=== PATIENT | male | born 1995 | race Caucasian/White ===

== ENCOUNTER 2017-08-30 11:52 | Emergency (ER) | payer OTHER, BC ==
--- NOTE | 2017-08-30 12:12 | EDM.PDOC ---
ED HPI GENERAL MEDICAL PROBLEM - General Chief Complaint: Lower Extremity Injury/Pain Stated Complaint: [facility] Time Seen by Provider: 08/30/17 11:57 Source of Information: Reports: Patient, Family History Limitations: Reports: No Limitations - History of Present Illness INITIAL COMMENTS - FREE TEXT/NARRATIVE: The patient was playing basketball and he hit the rim and the basketball came back and hit him in the right hand. His wrist hurts after that. He has no other injuries. He is right handed. Onset: Sudden Duration: Minutes: Location: Reports: Upper Extremity, Right (Wrist) Quality: Reports: Sharp Severity: Moderate Improves with: Reports: Immobilization Worsens with: Reports: Movement Context: Reports: Exercise (Playing basketball) Associated Symptoms: Reports: No Other Symptoms Left Knee Pain Score (Numeric/FACES): 6 - Related Data Allergies Allergy/AdvReac Type Severity Reaction Status Date / Time amoxicillin Allergy Swelling Verified 08/30/17 11:57 shellfish derived AdvReac Nausea and Verified 08/30/17 11:57 Vomiting Home Meds: Home Meds . [No Known Home Meds] 08/30/17 [History] Past Medical History Musculoskeletal History: Reports: Other (See Below) Other Musculoskeletal History: knee dislocation Social & Family History - Tobacco Use Smoking Status *Q: Never Smoker Second Hand Smoke Exposure: No - Recreational Drug Use Recreational Drug Use: No Review of Systems - Review of Systems Review Of Systems: See Below Constitutional: Reports: No Symptoms Eyes: Reports: No Symptoms Ears: Reports: No Symptoms Nose: Reports: No Symptoms Mouth/Throat: Reports: No Symptoms Respiratory: Reports: No Symptoms Cardiovascular: Reports: No Symptoms GI/Abdominal: Reports: No Symptoms Musculoskeletal: Reports: Other (Right wrist pain) ED EXAM, GENERAL - Physical Exam Exam: See Below Exam Limited By: No Limitations General Appearance: Alert, No Apparent Distress Ears: Normal External Exam Nose: Normal Inspection Head: Atraumatic, Normocephalic Neck: Normal Inspection Respiratory/Chest: No Respiratory Distress Extremities: Other (Pain upon palpation to the right wrist. No edema noted) Course - Vital Signs Last Recorded V/S: Last Vital Signs Temp 98.6 F 08/30/17 11:54 Pulse 65 08/30/17 11:54 Resp 16 08/30/17 11:54 BP 141/89 H 08/30/17 11:54 Pulse Ox 99 08/30/17 11:54 - Orders/Labs/Meds Orders: Active Orders 24 hr Category Date Time Status Knee 1V or 2V Lt [CR] Stat Exams 08/30/17 12:06 Ordered - Re-Assessments/Exams Free Text/Narrative Re-Assessment/Exam: 08/30/17 12:10 His x-ray looks good. He has a sprain of his wrist. I will have him wear an gislea wrap. Departure - Departure Time of Disposition: 12:10 Disposition: Home, Self-Care 01 Condition: Good Clinical Impression: Sprain of right wrist Qualifiers: Encounter type: initial encounter Qualified Code(s): S63.501A - Unspecified sprain of right wrist, initial encounter - Discharge Information Additional Instructions: Ice your wrist for 15 minutes 3 times per day for 2 days. Wear the gisela wrap for comfort. Take motrin or tylenol for pain. Follow up with your doctor in 2 weeks if you are not better. - My Orders Last 24 Hours: My Active Orders 08/30/17 12:06 Knee 1V or 2V Lt [CR] Stat - Assessment/Plan Last 24 Hours: My Active Orders 08/30/17 12:06 Knee 1V or 2V Lt [CR] Stat
[2017-08-30] MEDS ORDERED: HYDROmorphone 0.5 MG/0.5 ML SYRINGE IVPUSH ONE (12:20)
--- NOTE | 2017-08-30 12:38 | PCM.PREANE ---
Preanesthetic Assessment - Anesthesia/Transfusion/Family Hx Anesthesia History: Prior Anesthesia Without Reaction Family History of Anesthesia Reaction: No Transfusion History: No Prior Transfusion(s) Intubation History: Unknown - Review of Systems General: No Symptoms Pulmonary: No Symptoms Cardiovascular: No Symptoms Gastrointestinal: No Symptoms Neurological: No Symptoms Other: Reports: None (ETOH noted occasionally) - Physical Assessment NPO Status Date: 08/30/17 NPO Status Time: 07:30 Pulse: 65 O2 Sat by Pulse Oximetry: 99 Respiratory Rate: 16 Blood Pressure: 141/89 Temperature: 37 C Vital Signs: Last Vital Signs Temp 37.0 C 08/30/17 11:54 Pulse 65 08/30/17 11:54 Resp 16 08/30/17 11:54 BP 141/89 H 08/30/17 11:54 Pulse Ox 99 08/30/17 11:54 Height: 1.83 m Weight: 92.986 kg ASA Class: 1E Mental Status: Alert & Oriented x3 Airway Class: Mallampati = 2 Dentition: Reports: Normal Dentition (permanent bottom retainer noted.), Caries Thyro-Mental Finger Breadths: 3 Mouth Opening Finger Breadths: 3 ROM/Head Extension: Full Lungs: Clear to Auscultation, Normal Respiratory Effort Cardiovascular: Regular Rate, Regular Rhythm, No Murmurs - Allergies Allergies/Adverse Reactions: Allergies Allergy/AdvReac Type Severity Reaction Status Date / Time amoxicillin Allergy Swelling Verified 08/30/17 11:57 shellfish derived AdvReac Nausea and Verified 08/30/17 11:57 Vomiting - Anesthesia Plan Pre-Op Medication Ordered: None - Acknowledgements Anesthesia Type Planned: MAC Pt an Appropriate Candidate for the Planned Anesthesia: Yes Alternatives and Risks of Anesthesia Discussed w Pt/Guardian: Yes Pt/Guardian Understands and Agrees with Anesthesia Plan: Yes PreAnesthesia Questionnaire Musculoskeletal History: Reports: Other (See Below) Other Musculoskeletal History: knee dislocation - SUBSTANCE USE Smoking Status *Q: Never Smoker Second Hand Smoke Exposure: No Recreational Drug Use History: No - HOME MEDS Home Medications: Home Meds . [No Known Home Meds] 08/30/17 [History] - CURRENT (IN HOUSE) MEDS Current Meds: Current Medications Discontinued Medications Hydromorphone HCl (Dilaudid) 0.5 mg IVPUSH ONETIME ONE Stop: 08/30/17 12:21 Last Admin: 08/30/17 12:25 Dose: 0.5 mg
[2017-08-30] MEDS ORDERED: Lidocaine 1% 6 ML ONE (12:42)
[2017-08-30] MEDS ORDERED: Propofol 200 MG/20 ML SDV ONE (12:42)
[2017-08-30 13:21] VITALS: BP 130/76
--- NOTE | 2017-08-30 13:21 | PCM48HPAN ---
Post Anesthesia Note - EVALUATION WITHIN 48HRS OF ANESTHETIC Vital Signs in Normal Range: Yes Patient Participated in Evaluation: Yes Respiratory Function Stable: Yes Airway Patent: Yes Cardiovascular Function Stable: Yes Hydration Status Stable: Yes Pain Control Satisfactory: Yes Nausea and Vomiting Control Satisfactory: Yes Mental Status Recovered: Yes Pulse Rate: 88 SaO2: 100 Resp Rate: 22 Temperature: 37 C Blood Pressure: 130/76
[2017-08-30] MEDS ORDERED: Ketorolac 30 MG/ML SDV IVPUSH ONE (14:55)
--- NOTE | 2017-08-31 08:08 | CR ---
Left knee: Single AP view of the left knee was obtained. Patellar dislocation appears better aligned but still remains laterally subluxed. No additional abnormality is seen. Impression: 1. Persistent lateral subluxation of patella. Diagnostic code #3
--- NOTE | 2017-08-31 08:08 | CR ---
Left knee: Two views of the left knee were obtained. Dislocated patella is seen laterally. No discrete fracture identified on this two-view study. Impression: 1. Dislocated patella. Diagnostic code #3
--- NOTE | 2017-08-31 08:18 | CT ---
CT left knee Technique: Multiple axial sections were obtained through the left knee. Reconstructed coronal and sagittal images were obtained. Comparison: Previous left knee radiographs of 11/23/14 and MRI of 12/09/14. Findings: Patella is subluxed laterally. Fluid seen within the joint which has Hounsfield unit measurements of blood compatible with bloody effusion. Small avulsion fracture is identified off the medial edge of the patella compatible with avulsion at the attachment of the medial retinaculum. Slight osteophyte is noted off the lateral femoral condyle. No acute fracture is identified. There is a small well-corticated bony density noted off the anterior joint likely relating to old injury which may represent a small loose body measuring about 1.6 cm in greatest dimension. Exact donor site of this old injury is uncertain. Impression: 1. Acute avulsion fracture at the attachment of the medial retinaculum to the medial patella. 2. Subluxation of the patella laterally which appears to be caused by mostly a large bloody effusion. 3. Other incidental findings. Diagnostic code #3 MTDD
== END 2017-08-30 15:20 | disposition home or self-care (01) ==
LOC: JD.ED 11:52
DX: S82.002A Unspecified fracture of left patella, initial encounter for closed fracture (principal); S83.005A Unspecified dislocation of left patella, initial encounter; S63.501A Unspecified sprain of right wrist, initial encounter; Z88.1 Allergy status to other antibiotic agents; Z91.013 Allergy to seafood; X50.9XXA Other and unspecified overexertion or strenuous movements or postures, initial encounter
CPT/HCPCS: 27562; 73560; 73700; 96374; 96375; 99285; J1170; J1885; J2001; 01390; 27560; 99282-25; J2704

== ENCOUNTER 2017-10-11 08:51 | Day surgery (SDC) | payer OTHER, BC ==
[~2017-10-11 08:51] MED LIST: Lidocaine 1%/Sod Bicarbonate in NS 8.4% 1 ML Syringe IDERM PRN; Sodium Chloride 0.9% 10 ML Syringe FLUSH PRN
[2017-10-11] MEDS: Lactated Ringers 1,000 ML IV SCH ×2 (09:20→16:06)
--- NOTE | 2017-10-11 09:41 | PCM.PREANE ---
Preanesthetic Assessment - Anesthesia/Transfusion/Family Hx Anesthesia History: Prior Anesthesia Without Reaction Family History of Anesthesia Reaction: No Transfusion History: No Prior Transfusion(s) Intubation History: Unknown - Review of Systems General: No Symptoms Pulmonary: No Symptoms Cardiovascular: No Symptoms Gastrointestinal: No Symptoms Neurological: No Symptoms Other: Reports: None - Physical Assessment NPO Status Date: 10/10/17 NPO Status Time: 00:00 Pulse: 79 O2 Sat by Pulse Oximetry: 97 Respiratory Rate: 18 Blood Pressure: 118/62 Temperature: 36.8 C Height: 1.85 m Weight: 89.086 kg ASA Class: 1 Mental Status: Alert & Oriented x3 Dentition: Reports: Normal Dentition Thyro-Mental Finger Breadths: 3 Mouth Opening Finger Breadths: 2 ROM/Head Extension: Full Lungs: Clear to Auscultation, Normal Respiratory Effort Cardiovascular: Regular Rate, Regular Rhythm, No Murmurs - Lab Values: Laboratory Last Values WBC 8.60 K/mm3 (4.23-9.07) 10/05/17 14:22 RBC 5.73 M/mm3 (4.63-6.08) 10/05/17 14:22 Hgb 16.3 gm/L (13.7-17.5) 10/05/17 14:22 Hct 47.8 % (40.1-51.0) 10/05/17 14:22 MCV 83.4 fl (79.0-92.2) 10/05/17 14:22 MCH 28.4 pg (25.7-32.2) 10/05/17 14:22 MCHC 34.1 g/dl (32.2-35.5) 10/05/17 14:22 RDW Std Deviation 38.8 fL (35.1-43.9) 10/05/17 14:22 Plt Count 273 K/mm3 (163-337) 10/05/17 14:22 MPV 10.1 fl (9.4-12.3) 10/05/17 14:22 Neut % (Auto) 59.8 % (34.0-67.9) 10/05/17 14:22 Lymph % (Auto) 25.0 % (21.8-53.1) 10/05/17 14:22 Hernando % (Auto) 11.3 % (5.3-12.2) 10/05/17 14:22 Eos % (Auto) 3.1 (0.8-7.0) 10/05/17 14:22 Baso % (Auto) 0.5 % (0.1-1.2) 10/05/17 14:22 Neut # (Auto) 5.14 K/mm3 (1.78-5.38) 10/05/17 14:22 Lymph # (Auto) 2.15 K/mm3 (1.32-3.57) 10/05/17 14:22 Hernando # (Auto) 0.97 K/mm3 (0.30-0.82) H 10/05/17 14:22 Eos # (Auto) 0.27 K/mm3 (0.04-0.54) 10/05/17 14:22 Baso # (Auto) 0.04 K/mm3 (0.01-0.08) 10/05/17 14:22 Sodium 140 mEq/L (136-145) 10/05/17 14:22 Potassium 3.8 mEq/L (3.5-5.1) 10/05/17 14:22 Chloride 103 mEq/L (98-107) 10/05/17 14:22 Carbon Dioxide 27 mEq/L (21-32) 10/05/17 14:22 Anion Gap 13.8 (5-15) 10/05/17 14:22 BUN 16 mg/dL (7-18) 10/05/17 14:22 Creatinine 0.7 mg/dL (0.7-1.3) 10/05/17 14:22 Est Cr Clr Drug Dosing TNP 10/05/17 14:22 Estimated GFR (MDRD) > 60 mL/min (>60) 10/05/17 14:22 BUN/Creatinine Ratio 22.9 (14-18) H 10/05/17 14:22 Glucose 92 mg/dL (74-106) 10/05/17 14:22 Calcium 9.5 mg/dL (8.5-10.1) 10/05/17 14:22 MRSA (PCR) Negative 10/05/17 14:20 - Allergies Allergies/Adverse Reactions: Allergies Allergy/AdvReac Type Severity Reaction Status Date / Time Penicillins Allergy Hives Verified 10/10/17 16:18 shellfish derived AdvReac Nausea and Verified 10/10/17 16:18 Vomiting - Blood Blood Available: No Product(s) Available: None - Anesthesia Plan Pre-Op Medication Ordered: None - Acknowledgements Anesthesia Type Planned: General Anesthesia Pt an Appropriate Candidate for the Planned Anesthesia: Yes Alternatives and Risks of Anesthesia Discussed w Pt/Guardian: Yes Pt/Guardian Understands and Agrees with Anesthesia Plan: Yes PreAnesthesia Questionnaire HEENT History: Reports: None Cardiovascular History: Reports: None Respiratory History: Reports: None Gastrointestinal History: Reports: None Genitourinary History: Reports: None SOAP WORKER History: Reports: None Musculoskeletal History: Reports: None Other Musculoskeletal History: knee dislocation Neurological History: Reports: None Psychiatric History: Reports: None Endocrine/Metabolic History: Reports: None Hematologic History: Reports: None Immunologic History: Reports: None Oncologic (Cancer) History: Reports: None - Past Surgical History Head Surgeries/Procedures: Reports: None HEENT Surgical History: Reports: Oral Surgery Cardiovascular Surgical History: Reports: None Respiratory Surgical History: Reports: None GI Surgical History: Reports: None Female Surgical History: Reports: None Male Surgical History: Reports: None Neurological Surgical History: Reports: None Musculoskeletal Surgical History: Reports: None Oncologic Surgical History: Reports: None Dermatological Surgical History: Reports: Other (See Below) - SUBSTANCE USE Smoking Status *Q: Never Smoker Tobacco Use Within Last Twelve Months: No Second Hand Smoke Exposure: No Days Per Week of Alcohol Use: 1 Number of Drinks Per Day: 1 Total Drinks Per Week: 1 Recreational Drug Use History: No - HOME MEDS Home Medications: Home Meds Acetaminophen/HYDROcodone [[place] 325-5 MG] 1 - 2 tab PO Q6H PRN #40 tablet 10/11 [Rx] Aspirin 325 mg PO BID #84 tab 10/11/17 [Rx] Cyclobenzaprine [Flexeril] 10 mg PO Q8H PRN #40 tab 10/11/17 [Rx] - CURRENT (IN HOUSE) MEDS Current Meds: Current Medications Epinephrine HCl (Adrenalin) 3 mg IV ONETIME ONE Stop: 10/11/17 10:01 Lactated Ringer's (Ringers, Lactated) 1,000 mls @ 125 mls/hr IV ASDIRECTED BETTY Stop: 10/11/17 23:00 Lidocaine/Sodium Bicarbonate (Buffered Lidocaine 1% In Ns 8.4%) 0.25 ml IDERM ONETIME PRN PRN Reason: Prior to IV Start Stop: 10/11/17 18:00 Sodium Chloride (Saline Flush) 10 ml FLUSH ASDIRECTED PRN PRN Reason: Keep Vein Open Stop: 10/11/17 18:00
[2017-10-11] MEDS ORDERED: Ondansetron 4 MG/2 ML SDV ONE (09:48)
[2017-10-11] MEDS ORDERED: Propofol 200 MG/20 ML SDV ONE (09:49)
[2017-10-11] MEDS ORDERED: Lidocaine 1% 4 ML ONE (09:49)
[2017-10-11] MEDS ORDERED: Midazolam 1 MG/ML 2 ML SDV ONE (09:49)
[2017-10-11] MEDS ORDERED: fentaNYL 250 MCG/5 ML SDV ONE ×2 (09:49→12:00)
[2017-10-11] MEDS ORDERED: Bupivacaine 0.25% 30 ML SDV ONE (09:53)
[2017-10-11] MEDS ORDERED: EPINEPHrine 1 MG/ML 30 ML MDV IV ONE (10:00)
[2017-10-11] MEDS ORDERED: Ketorolac 30 MG/ML SDV ONE (11:27)
[2017-10-11] MEDS ORDERED: Lactated Ringers 1,000 ML ONE (11:29)
[2017-10-11] MEDS ORDERED: ceFAZolin 1 GM Vial ONE (11:33)
[2017-10-11] MEDS ORDERED: HYDROmorphone 0.5 MG/0.5 ML Syringe ONE ×4 (11:36→12:07)
--- NOTE | 2017-10-11 13:19 | PCM.POSTAN ---
POST ANESTHESIA ASSESSMENT - MENTAL STATUS Mental Status: Alert, Oriented - VITAL SIGNS Pulse Rate: 103 SaO2: 100 Resp Rate: 12 Blood Pressure: 136/78 Temperature: 36.6 C - RESPIRATORY Respiratory Status: Respiratory Rate WNL, Airway Patent, O2 Saturation Stable, Supplemental Oxygen - CARDIOVASCULAR CV Status: Pulse Rate WNL, Blood Pressure Stable - GASTROINTESTINAL GI Status: No Symptoms - PAIN Pain Score: 0 - POST OP HYDRATION Hydration Status: Adequate & Stable
[2017-10-11] MEDS ORDERED: Ondansetron 4 MG/2 ML SDV IVPUSH PRN (13:20)
[2017-10-11] MEDS ORDERED: fentaNYL 100 MCG/2 ML SDV IVPUSH PRN (13:20)
[2017-10-11] MEDS ORDERED: HYDROmorphone 0.5 MG/0.5 ML Syringe IVPUSH PRN (13:20)
[2017-10-11] MEDS ORDERED: Meperidine PF 50 MG/ML Syringe IVPUSH PRN (13:20)
[2017-10-11] MEDS ORDERED: diphenhydrAMINE 50 MG/ML SDV IVPUSH PRN (13:20)
--- NOTE | 2017-10-11 14:01 | CR ---
Left knee: Six fluoroscopic spot views were obtained of the left knee utilizing C-arm device. Findings: Evidence of surgery to the patella is noted. Fluoroscopy time given as 41.6 seconds. Impression: 1. Operative study. Diagnostic code #2
[2017-10-11] MEDS ORDERED: Acetaminophen/HYDROcodone 325-5 MG Tab PO PRN (14:34)
[2017-10-11 17:00] VITALS: BP 135/80
--- NOTE | 2017-10-13 08:39 | PCM.OPNOTE ---
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
--- NOTE | 2017-10-13 09:28 | OR ---
DATE OF OPERATION: 10/11/2017 SURGEON: Brant Higgins MD OPERATION PERFORMED: Left knee video arthroscopy, medial patellofemoral ligament reconstruction with allograft. PREOPERATIVE DIAGNOSIS: Recurrent left patellar dislocations. POSTOPERATIVE DIAGNOSIS: Recurrent left patellar dislocations. ANESTHESIA: General LMA with local. ANESTHESIA PROVIDER: Angus Tran CRNA. ASSISTANTS: Charu Vergara PA-C and Audrey Barnes LPN. ESTIMATED BLOOD LOSS: 10 mL. COMPLICATIONS: None. CONDITION: Stable. DESCRIPTION OF PROCEDURE: The patient was identified in the preop holding area. Proper site was marked and identified by the surgeon. The patient was taken back to the operating theater where after adequate anesthesia, the patient was placed supine on a radiolucent table. The left lower extremity had a nonsterile tourniquet applied and was then sterilely prepped and draped in the usual sterile fashion. OR time- out was performed. The patient received 2 g of IV Ancef. The left lower extremity was then exsanguinated. Tourniquet was insufflated to 250 mmHg. Standard anterolateral portal incision was made. With the patient's knee in flexion, the patient's knee did have 1+ effusion. At this time, the patient was noted to have significant patellar instability. A posterior lateral portal was then created. The patient was noted to have significant lateral subluxation of his patella throughout range of motion with a shallow trochlear groove. At this time, it was decided that we would continue with MPFL reconstruction. The graft was opened on the back table. This was then prepared by Charu Vergara PA-C and Audrey Barnes LPN for an MPFL reconstruction using the typical Arthrex technique. At this time, while this was being utilized, a small incision was made near the superior medial pole of the patella. This was taken down to the bony surface of the edge and a guide pin was placed for Arthrex reconstruction of MPFL at roughly 3 mm from the medial superior corner of the patella. This was found to be in adequate visualization on both AP and lateral views. The second guidepin was then placed for roughly 15-20 mm distal to that. A drill was then utilized to drill for the Arthrex anchors. After this was then constructed, a tunnel was placed between the second and third layers of the medial side of the knee down to the point where an MPFL reconstruction would be placed on the femur. A lateral C-arm fluoroscopy was utilized for proper positioning of the MPFL using Blumensaat's line as well as the posterior line of the femoral cortex. The guide was then placed in the proper position and the femur was placed all the way through across the knee through the contralateral side. At this time, the graft was then ready and the 2 Arthrex anchors were then placed in both of the previous drill holes on the medial side of the patella. The graft was then shuttled through the layers of the medial side of the knee and the tunnel that was created before and the suture limbs of the grafts were then placed in the eyelet of the pin that had been placed across the femur. This was then pulled through the lateral side and the sutures were brought up through the lateral side. Tension was then applied until the patella was tracking centrally in the groove. C-arm fluoroscopy showed adequate fixation of the patella as well as the tracking more medially. Arthroscopic images were then obtained from the posterior lateral portal and the patient had his knee brought through range of motion. It was tracking centrally with no signs of dislocation or subluxation. At this time, the interference screw was placed on the medial side in the femur and was found to be seated well with good fixation. The guide pin was then removed. All sutures were cut. 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 At this time, excess cement was drained from the knee. A 2-0 Vicryl was used deep as well as subcutaneously and Monocryl was used for the skin. The patient tolerated the procedure well and was sent to PACU in stable condition. MMODAL /[id number]
== END 2017-10-11 17:33 | disposition home or self-care (01) ==
LOC: JD.SDS 08:51
PROVIDERS: ATTEND Orthopaedic Surgery
DX: M22.02 Recurrent dislocation of patella, left knee (principal); M22.42 Chondromalacia patellae, left knee; Z88.0 Allergy status to penicillin; Z91.013 Allergy to seafood; Z79.82 Long term (current) use of aspirin; Z79.899 Other long term (current) drug therapy
CPT/HCPCS: 27422; 36415; 76000; 80048; 85025; 87641; A9270; C1762; J0171; J0690; J1170; J1885; J2001; J2250; J2405; J3010; J3490; J7120; 01392; J2704